=== PATIENT | female | born 1995 | race African-American/Black ===

== ENCOUNTER 2017-01-26 20:31 | Observation (INO) | payer MEDICAID ==
[~2017-01-26] VITALS: Ht 165.1 cm; Wt 79.4 kg
[~2017-01-26 20:31] MED LIST: FERR-43 PO; PREN-88 PO
[2017-01-26 20:58] LABS: CLARITY URINE CLEAR (CLEAR); COLOR URINE YELLOW (YELLOW); GLUCOSE URINE NEGATIVE (NEGATIVE); KETONES URINE NEGATIVE (NEGATIVE); LEUKOCYTE ESTERASE URINE 1+ (NEGATIVE); NITRITE URINE NEGATIVE (NEGATIVE); OCCULT BLOOD URINE NEGATIVE (NEGATIVE); PH URINE 7.5 (4.5-8.0); PROTEIN URINE NEGATIVE (NEGATIVE); SPECIFIC GRAVITY URINE 1.016 (1.005-1.030)
[2017-01-26 21:15] LABS: BACTERIA URINE 3+; RBC URINE 0-2 /hpf (0-2); SQUAMOUS EPITHELIAL CELL URINE 1+ /lpf (RARE/1+); WBC URINE 0-2 /hpf (0-2)
[2017-01-26] MEDS ORDERED: CEFAZOLIN 2,000 MG in DEXT 5% WATER 100 ML IV NR (21:30)
[2017-01-26] MEDS ORDERED: LACTATED RINGERS 1,000 ML IV SCH (21:30)
[2017-01-26] MEDS ORDERED: ACETAMINOPHEN 325MG TABLET PO NR (21:45)
[2017-01-26] MEDS ORDERED: PREN-88 PO (22:14)
[2017-01-26] MEDS ORDERED: FERR-63 PO (22:14)
[2017-01-26] MEDS ORDERED: FOLI-43 PO (22:14)
== END 2017-01-26 23:00 | disposition home or self-care (01) ==
LOC: L&D 20:31
PROVIDERS: ADMIT Obstetrics & Gynecology; ATTEND Obstetrics & Gynecology
DX: O26.893 Other specified pregnancy related conditions, third trimester (principal); R10.32 Left lower quadrant pain; Z3A.28 28 weeks gestation of pregnancy
CPT/HCPCS: 81001; 96365; 99281; G0378; J0690; J7120; 96360; J7060